=== PATIENT | male | born 1975 | race Caucasian/White ===

== ENCOUNTER 2023-10-19 14:30 | Inpatient (IN) | payer MEDICAID ==
[~2023-10-19] VITALS: Ht 175.3 cm; Wt 88.5 kg
[2023-10-19 14:40] VITALS: BP_SYST 147; PULSE 80; RESP 19; TEMP 98.1; O2SAT 99
[2023-10-19] MEDS ORDERED: iohexoL 350 mgI/mL, 100 ML INFUS..BTL IV ONE ×2 (14:56→21:11)
[2023-10-19 15:49] LABS: BASOPHILS % (AUTO) 0.3 % (0.0-2.0); EOSINOPHILS # (AUTO) 0.1 K/uL (0.0-0.4); EOSINOPHILS % (AUTO) 0.7 % (0.0-4.0); HEMATOCRIT 41.5 % (36-54); LYMPHOCYTES # (AUTO) 1.9 K/uL (1.0-5.5); LYMPHOCYTES % (AUTO) 24.8 % (20.5-51.5); MEAN CORPUSCULAR HEMOGLOBIN 30 pg (27-31); MEAN CORPUSCULAR HGB CONC 34 % (32-36); MEAN CORPUSCULAR VOLUME 87 fL (79.0-98.0); MONOCYTES # (AUTO) 0.4 K/uL (0.0-1.0); NEUTROPHILS # (AUTO) 5.3 K/uL (1.8-7.7); NEUTROPHILS % (AUTO) 69.2 % (40.0-70.0); PLATELET COUNT (AUTO) 261 K/uL (130-430); RED BLOOD CELL COUNT(AUTO) 4.76 MIL/uL (4.2-6.2); RED CELL DISTRIBUTION WIDTH 13.9 % (9.0-15.0); WHITE BLOOD COUNT (AUTO) 7.6 K/uL (4.8-10.8)
[2023-10-19 15:58] LABS: ANION GAP 7 (5-15); CALCIUM 8.2 mg/dL (8.4-11.0); CARBON DIOXIDE 29 mmol/L (23-29); CHLORIDE 104 mmol/L (98-107); CREATININE 1.07 mg/dL (0.55-1.30); GFR AFRICAN AMERICAN 96 mL/min (>90); GLUCOSE 86 mg/dL (74-106); POTASSIUM 4.1 mmol/L (3.5-5.1); SODIUM SERUM 140 mmol/L (136-145); UREA NITROGEN, BLOOD 11 mg/dL (8-21)
[2023-10-19] MEDS ORDERED: MAGNESIUM SULFATE 1 GM in NS 100 ML IV ONE (16:00)
[2023-10-19 16:02] LABS: PROTHROMBIN TIME 10.6 SECS (9.5-12.5)
[2023-10-19 16:06] LABS: CHOLESTEROL 196 mg/dL (<200); HDL CHOLESTEROL 51 mg/dL (>45); TRIGLYCERIDES 57 mg/dL (30-150)
[2023-10-19 16:09] LABS: GFR NON AFRICAN-AMERICAN 79 mL/min (>90)
[2023-10-19] MEDS ORDERED: MAGNESIUM SULFATE 50 ML IV ONE (16:17)
[2023-10-19] MEDS: KETOROLAC TROMETHAMINE 30 MG VIAL IVP ONE (16:34)
[2023-10-19] MEDS: MAGNESIUM SULFATE 50 ML IV ONE (16:35)
[2023-10-19 16:36] LABS: HEMOGLOBIN A1C 5.56 % (<5.7)
[2023-10-19 17:15] LABS: BILIRUBIN,URINE NEGATIVE (NEGATIVE); CLARITY/URINE CLEAR (CLEAR); COLOR,URINE YELLOW (YELLOW); GLUCOSE,URINE NEGATIVE (NEGATIVE); KETONES,URINE TRACE (NEGATIVE); LEUKOCYTE ESTERASE ,URINE NEGATIVE (NEGATIVE); NITRITE, URINE NEGATIVE (NEGATIVE); PROTEIN URINE NEGATIVE (NEGATIVE); UROBILINOGEN,URINE 0.2 (0.2-1.0)
[2023-10-19] MEDS: IPRATROPIUM/ALBUTEROL SULFATE 3 ML AMPUL.NEB (DUONEB) INH ONE (17:16)
[2023-10-19 17:20] LABS: BLOOD, URINE TRACE (NEGATIVE)
[2023-10-19 17:21] LABS: BACTERIA,URINE None Seen /HPF (None Seen); MUCUS,URINE None Seen /LPF (None Seen); RBC,URINE 0-3 /HPF (0-3); WBC,URINE 0-3 /HPF (0-3)
[2023-10-19 17:24] LABS: BARBITURATE, URINE NEGATIVE (NEG <=200); BENZODIAZEPINE, URINE NEGATIVE (NEG <=150); CANNABINOID, URINE NEGATIVE (NEG <=50); COCAINE, URINE NEGATIVE (NEG <=150); METHAMPHETAMINES SCREEN,URINE NEGATIVE (NEG <=500); OPIATE, URINE NEGATIVE (NEG <=100); PHENCYCLIDINE SCREEN,URINE NEGATIVE (NEG <=25); UR TRICYCLIC ANTIDEPRESSANTS NEGATIVE (NEG <=300); URINE AMPHETAMINE NEGATIVE (NEG <=500); URINE METHADONE NEGATIVE (NEG <=200); URINE OXYCODONE SCREEN NEGATIVE (NEG <=100)
[2023-10-19 19:11] LABS: INFLUENZA TYPE A Negative (NEGATIVE); INFLUENZA TYPE B NEGATIVE (NEGATIVE)
[2023-10-19] MEDS: DIPHENHYDRAMINE INJ 50 MG/ML VIAL IVP ONE (20:30)
[2023-10-19] MEDS ORDERED: POTASSIUM CHLORIDE 20 MEQ TABLET.ER PO PRN (21:15)
[2023-10-19] MEDS ORDERED: LORazepam 2 MG/ML VIAL IVP PRN (21:15)
[2023-10-19] MEDS ORDERED: ALBUTEROL SULFATE 0.083% 2.5 MG/3 ML VIAL.NEB INH PRN (21:15)
[2023-10-19] MEDS ORDERED: ONDANSETRON HCL 4 MG/2 ML VIAL IVP PRN (21:15)
[2023-10-19] MEDS ORDERED: MORPHINE 2 MG/ML INJ. SYRINGE IVP PRN (21:15)
[2023-10-19] MEDS ORDERED: MAGNESIUM SULFATE 50 ML IV PRN (21:15)
[2023-10-19] MEDS ORDERED: MUPIROCIN 2% TOPICAL OINTMENT 22 GM NS PRN (21:15)
[2023-10-19] MEDS ORDERED: DOCUSATE SODIUM 100 MG CAPSULE PO PRN (21:15)
[2023-10-19] MEDS: cefTRIAXone 1 GM IVPB PREMIX 50 ML IV SCH (22:33)
[2023-10-20] VITALS (7 sets, daily range): BP systolic 121–146; PULSE 74–89; RESP 14–20; TEMP 96.7–98.8; O2SAT 95–99
[2023-10-20] MEDS: AZITHROMYCIN 500 MG in NS 250 ML IV SCH (00:44)
[2023-10-20] MEDS: AZITHROMYCIN 500 MG/VIAL (ZITHROMAX) IV ONE (00:44)
[2023-10-20 06:33] LABS: BASOPHILS % (AUTO) 0.6 % (0.0-2.0); EOSINOPHILS # (AUTO) 0.1 K/uL (0.0-0.4); EOSINOPHILS % (AUTO) 2.6 % (0.0-4.0); HEMATOCRIT 42.2 % (36-54); LYMPHOCYTES # (AUTO) 2.4 K/uL (1.0-5.5); MEAN CORPUSCULAR HEMOGLOBIN 29 pg (27-31); MEAN CORPUSCULAR HGB CONC 33 % (32-36); MEAN CORPUSCULAR VOLUME 88 fL (79.0-98.0); MONOCYTES # (AUTO) 0.4 K/uL (0.0-1.0); MONOCYTES % (AUTO) 7.3 % (1.7-9.3); NEUTROPHILS # (AUTO) 2.7 K/uL (1.8-7.7); NEUTROPHILS % (AUTO) 47.5 % (40.0-70.0); PLATELET COUNT (AUTO) 272 K/uL (130-430); RED BLOOD CELL COUNT(AUTO) 4.82 MIL/uL (4.2-6.2); RED CELL DISTRIBUTION WIDTH 13.9 % (9.0-15.0); WHITE BLOOD COUNT (AUTO) 5.6 K/uL (4.8-10.8)
[2023-10-20 06:46] LABS: CREATININE 1.02 mg/dL (0.55-1.30); POTASSIUM 4.9 mmol/L (3.5-5.1)
[2023-10-20] MEDS: MORPHINE 2 MG/ML INJ. SYRINGE IVP PRN (13:06)
[2023-10-21] VITALS: BP_SYST 138; PULSE 79; RESP 18; TEMP 97.9; O2SAT 98
[2023-10-21 07:04] LABS: BASOPHILS % (AUTO) 0.6 % (0.0-2.0); EOSINOPHILS # (AUTO) 0.2 K/uL (0.0-0.4); EOSINOPHILS % (AUTO) 2.9 % (0.0-4.0); HEMATOCRIT 41.7 % (36-54); HEMOGLOBIN 13.8 g/dL (14.0-18.0); LYMPHOCYTES # (AUTO) 2.8 K/uL (1.0-5.5); LYMPHOCYTES % (AUTO) 45.1 % (20.5-51.5); MEAN CORPUSCULAR HEMOGLOBIN 29 pg (27-31); MEAN CORPUSCULAR HGB CONC 33 % (32-36); MEAN CORPUSCULAR VOLUME 88 fL (79.0-98.0); MONOCYTES # (AUTO) 0.3 K/uL (0.0-1.0); MONOCYTES % (AUTO) 5.6 % (1.7-9.3); NEUTROPHILS # (AUTO) 2.8 K/uL (1.8-7.7); NEUTROPHILS % (AUTO) 45.8 % (40.0-70.0); PLATELET COUNT (AUTO) 253 K/uL (130-430); RED BLOOD CELL COUNT(AUTO) 4.76 MIL/uL (4.2-6.2); RED CELL DISTRIBUTION WIDTH 13.7 % (9.0-15.0); WHITE BLOOD COUNT (AUTO) 6.2 K/uL (4.8-10.8)
[2023-10-21 07:18] LABS: CALCIUM 8.5 mg/dL (8.4-11.0); CREATININE 1.12 mg/dL (0.55-1.30); POTASSIUM 4.6 mmol/L (3.5-5.1)
[2023-10-21 08:20] VITALS: BP_SYST 142; PULSE 74; RESP 14; TEMP 96.9; O2SAT 98
[2023-10-21] MEDS: ASPIRIN 81 MG TAB.CHEW PO SCH (09:26)
[2023-10-21 11:45] VITALS: BP_SYST 139; PULSE 69; RESP 17; TEMP 98.6; O2SAT 97
[2023-10-21 16:43] VITALS: BP_SYST 124; PULSE 80; RESP 16; TEMP 98; O2SAT 95
[2023-10-21 19:00] VITALS: BP_SYST 135; PULSE 84; RESP 16; TEMP 97.5; O2SAT 96; O2SAT 98
[2023-10-21 20:01] VITALS: BP_SYST 135; PULSE 84; RESP 18; TEMP 97.5; O2SAT 94
[2023-10-21] MEDS: ACETAMINOPHEN 325 MG TABLET PO PRN (20:39)
[2023-10-22 06:06] LABS: BASOPHILS % (AUTO) 0.7 % (0.0-2.0); EOSINOPHILS # (AUTO) 0.2 K/uL (0.0-0.4); EOSINOPHILS % (AUTO) 3.1 % (0.0-4.0); HEMATOCRIT 42.2 % (36-54); LYMPHOCYTES # (AUTO) 2.7 K/uL (1.0-5.5); LYMPHOCYTES % (AUTO) 43.4 % (20.5-51.5); MEAN CORPUSCULAR HEMOGLOBIN 29 pg (27-31); MEAN CORPUSCULAR HGB CONC 33 % (32-36); MEAN CORPUSCULAR VOLUME 88 fL (79.0-98.0); MONOCYTES # (AUTO) 0.4 K/uL (0.0-1.0); MONOCYTES % (AUTO) 6.8 % (1.7-9.3); NEUTROPHILS # (AUTO) 2.8 K/uL (1.8-7.7); PLATELET COUNT (AUTO) 270 K/uL (130-430); RED CELL DISTRIBUTION WIDTH 13.8 % (9.0-15.0); WHITE BLOOD COUNT (AUTO) 6.1 K/uL (4.8-10.8)
[2023-10-22 06:37] LABS: CALCIUM 8.6 mg/dL (8.4-11.0); CREATININE 1.25 mg/dL (0.55-1.30); POTASSIUM 4.3 mmol/L (3.5-5.1)
[2023-10-22 08:00] VITALS: O2SAT 99
[2023-10-22] MEDS ORDERED: ASPI-1393 PO (09:27)
[2023-10-22] MEDS ORDERED: LIP20 PO (09:29)
[2023-10-22] MEDS ORDERED: ZIT250 PO (09:51)
[2023-10-22] MEDS ORDERED: ALBMDI INH (09:51)
[2023-10-22 11:13] VITALS: BP_SYST 134; PULSE 76; RESP 16; TEMP 97.3; O2SAT 97
[2023-10-22 12:00] VITALS: BP_SYST 138; PULSE 70; RESP 16; TEMP 97.6; O2SAT 99
[2023-10-22 12:41] VITALS: BP_SYST 123; RESP 18; TEMP 97.3; O2SAT 96
[2023-10-22 15:30] VITALS: BP_SYST 133; PULSE 76; RESP 16; TEMP 97; O2SAT 99
[2023-10-22 15:38] VITALS: BP_SYST 137; PULSE 70; RESP 18; TEMP 97.4; O2SAT 99
== END 2023-10-22 17:15 | disposition home or self-care (01) | DRG 48 ==
LOC: SED 14:30 → STU 21:13 → SMU 10-22 09:27
PROVIDERS: ADMIT Family Medicine; ATTEND Family Medicine
DX: G90.9 Disorder of the autonomic nervous system, unspecified (principal); E83.41 Hypermagnesemia; J18.9 Pneumonia, unspecified organism; E83.51 Hypocalcemia; I10 Essential (primary) hypertension; Z20.822 Contact with and (suspected) exposure to COVID-19; R09.02 Hypoxemia; Z86.16 Personal history of COVID-19
CPT/HCPCS: 36415; 70450; 70496; 70498; 70551; 71045; 71275; 80048; 80061; 80307; 81000; 81001; 81015; 83037; 83735; 83880; 84484; 85025; 85610; 85730; 86886; 86900; 86901; 93005; 94640; 96365; 96375; 99291; G0378; J0456; J0696; J1200; J1885; J2270; J3475; J7050; Q9967